=== PATIENT | male | born 1960 | race Caucasian/White ===

== ENCOUNTER 2017-09-22 08:18 | Outpatient (CLI) | payer BC ==
--- NOTE | 2017-09-22 14:46 | NM ---
PARATHYROID SCAN: HISTORY: Hyperparathyroidism unspecified. TECHNIQUE: The patient was given 23 mCi of Technetium labeled sestamibi IV. The thyroid bed was scanned anterio rly and obliquely with immediate and 1-hour delayed images. FINDINGS: There is normal thyroid activity seen on immediate images. There is normal washout from the thyroid seen on the 1-hour delayed image. No evidence of focal residual activity identified that would indic ate an adenoma. IMPRESSION: Negative parathyroid scan. POS: [facility]
== END 2017-09-22 08:19 | disposition home or self-care (01) ==
LOC: NM 08:18
PROVIDERS: ATTEND Family Medicine
DX: E21.3 Hyperparathyroidism, unspecified (principal)
CPT/HCPCS: 78072; A9500

== ENCOUNTER 2017-10-29 09:17 | Day surgery (SDC) | payer BC ==
[2017-10-28 13:43] VITALS: BMI 31.4
[2017-10-29] MEDS ORDERED: Lidocaine 1% w/Epinephrine 1:200K 30 ML VIAL ONE (12:30)
[2017-10-29] MEDS ORDERED: Fentanyl 250 MCG/5 ML VIAL ONE (12:30)
[2017-10-29] MEDS ORDERED: cefTRIAXone\\ROCEPHIN 1 GM VIAL ONE (13:30)
[2017-10-29] MEDS ORDERED: Fentanyl 100 MCG/2 ML VIAL ONE (15:50)
[2017-10-29] MEDS ORDERED: Propofol 200 MG/20 ML VIAL ONE (16:26)
[2017-10-29] MEDS ORDERED: Lidocaine 1% PF 5 ML VIAL ONE (16:26)
[2017-10-29] MEDS ORDERED: PHENYLEPHRINE-NS 100 MCG/ML 10 ML SYRINGE ONE (16:26)
[2017-10-29] MEDS ORDERED: Succinylcholine Chloride 20 MG/ML 10 ml SYRINGE FS ONE (16:26)
[2017-10-29] MEDS ORDERED: Dexamethasone 20 MG/5 ML VIAL ONE (16:26)
[2017-10-29] MEDS ORDERED: Ondansetron HCl/PF 4 MG/2 ML Vial ONE (16:26)
[2017-10-29] MEDS ORDERED: diphenhydrAMINE 50 MG/ML VIAL ONE (16:26)
--- NOTE | 2017-10-29 19:08 | EKG ---
Test Reason : PREOP Blood Pressure : / mmHG Vent. Rate : 063 BPM Atrial Rate : 063 BPM P-R Int : 238 ms QRS Dur : 092 ms QT Int : 428 ms P-R-T Axes : 033 -23 -04 degrees QTc Int : 437 ms Sinus rhythm with 1st degree A-V block Minimal voltage criteria for LVH, may be normal variant Borderline ECG No previous ECGs available Confirmed by DR. Marisol CRAIG (3) on 10/29/2017 7:08:02 PM Referred By: Didier DOYLE Confirmed By:DR. Marisol CRAIG
--- NOTE | 2017-10-30 15:24 | OP ---
DATE OF PROCEDURE: 10/29/2017 PREOPERATIVE DIAGNOSES: 1. Hyperparathyroidism. 2. Hypercalcemia. POSTOPERATIVE DIAGNOSES: 1. Hyperparathyroidism. 2. Hypercalcemia. PROCEDURES PERFORMED: 1. Bilateral parathyroidectomy and exploration of 4 glands. 2. Left hemithyroidectomy. SURGEON: Dr. Fareed Shankar. ESTIMATED BLOOD LOSS: 20 mL COMPLICATIONS: None. ANESTHESIA: GETA with laryngeal nerve monitor. DESCRIPTION OF PROCEDURE: The patient taken to the operating room and placed supine on the table. G eneral endotracheal anesthesia was obtained by the Anesthesia staff. Using the laryngeal monitor, th e tube was then secured to the midline of the upper lip and was secured. The patient was prepped and draped in standard surgical fashion and shoulder roll was placed. Following this, I anticipat ed incision overlying the thyroid gland was created using a 15 blade through skin and subcutaneous ti ssue and the platysmal layer. Following this, subplatysmal flaps elevated superiorly and inferiorly , superiorly to the level of the thyroid notch and inferiorly to the clavicles. Following this, the strap muscles were identified in the midline and were . Dissection was then carried down on the thyroid gland, which was noted to be atrophic bilaterally. Exploration and identification of th e recurrent laryngeal nerves was performed bilaterally as well as the inferior thyroid arteries. The re were multiple small lymph nodes in this area resembling parathyroid glands up to 8 specimens were sent of these various hyperplastic lymph nodes. Following this, the inferior thyroid artery was sutu re ligated bilaterally, as well as the middle thyroid vein bilaterally. The nerve and gland was retr acted and protected. Following this, the superior glands were identified immediately adjacent to the thyroid capsule bilaterally. They were extremely small, not consistent with an adenoma or hyperplas ia. These glands were left intact due to devascularization of the inferior thyroid arteries already. On the left side, no confirming identifiable parathyroid gland tissue was identified with our speci mens. There was a nodule located within the left thyroid gland and therefore a left hemithyroidectom y was performed. Following this, a drain was placed. The wound was irrigated and the strap muscles were reapproximated using Monocryl as well as use the platysmal layer and subcuticular layers. The s kin was closed using Dermabond. The patient tolerated procedure well.
== END 2017-10-29 18:55 | disposition home or self-care (01) ==
LOC: SDC 09:17
PROVIDERS: ATTEND Otolaryngology Plastic Surgery within the Head & Neck
PROC: 0GBG0ZZ Excision of Left Thyroid Gland Lobe, Open Approach (ICD-10-PCS; principal; 2017-10-29)
PROC: 0GTQ0ZZ Resection of Multiple Parathyroid Glands, Open Approach (ICD-10-PCS; principal; 2017-10-29)
PROC: 0WJC0ZZ Inspection of Mediastinum, Open Approach (ICD-10-PCS; principal; 2017-10-29)
DX: E06.3 Autoimmune thyroiditis (principal); E21.3 Hyperparathyroidism, unspecified; E03.9 Hypothyroidism, unspecified; Z79.899 Other long term (current) drug therapy; Z88.5 Allergy status to narcotic agent; Z87.891 Personal history of nicotine dependence; Z86.73 Personal history of transient ischemic attack (TIA), and cerebral infarction without residual deficits
CPT/HCPCS: 88305; 88307; 88331; 88334; 93005; 93010; 96374; J0696; J1100; J1200; J2001; J2405; J2704; J3010

== ENCOUNTER 2018-03-20 08:27 | Outpatient (CLI) | payer BC ==
--- NOTE | 2018-03-20 11:52 | NM ---
PARATHYROID SCAN: Date: 03-20-18 History: Hyperparathyroidism, unspecified. Radiopharmaceutical: 25.3 mCi Technetium 99M Sestamibi, IV. Views: Anterior and oblique immediate and 2-hour delayed images. Comparison: Parathyroid scan, 09-22-17. FINDINGS: There is uptake of radiotracer by the thyroid gland bilaterally on the immediate images. There is sym metric washout of radiotracer on the 2-hour delayed images. Patient reportedly had a left hemithyroid ectomy, but there is uptake of radiotracer in distribution of left thyroid gland. No focal area of ab normal increased uptake of radiotracer is seen in the region of either thyroid gland to suggest findi ngs related to a parathyroid adenoma. There is normal uptake of radiotracer within the salivary glands. Parathyroid scan is unchanged compared to the prior exam. IMPRESSION: No focal area of abnormal uptake of radiotracer is seen to suggest parathyroid adenoma. POS: [facility]
== END 2018-03-20 08:28 | disposition home or self-care (01) ==
LOC: NM 08:27
PROVIDERS: ATTEND Otolaryngology Plastic Surgery within the Head & Neck
DX: E21.3 Hyperparathyroidism, unspecified (principal)
CPT/HCPCS: 78072; A9500

== ENCOUNTER 2018-07-22 11:35 | Day surgery (SDC) | payer BC ==
[2018-07-21 14:40] VITALS: BMI 29.2
[2018-07-22] MEDS ORDERED: Lidocaine 1% w/Epinephrine 1:100K 30 ML VIAL ONE (13:45)
[2018-07-22] MEDS ORDERED: Fentanyl 100 MCG/2 ML VIAL ONE (14:23)
--- NOTE | 2018-07-26 22:16 | EKG ---
Test Reason : PREOP Blood Pressure : / mmHG Vent. Rate : 054 BPM Atrial Rate : 054 BPM P-R Int : 206 ms QRS Dur : 090 ms QT Int : 440 ms P-R-T Axes : 047 -19 -01 degrees QTc Int : 417 ms Sinus bradycardia Otherwise normal ECG When compared with ECG of 29-OCT-2017 11:50, MN interval has decreased Confirmed by VALERIA BARRERA (2) on 07/26/2018 10:15:34 PM Referred By: YANIRA Confirmed By:VALERIA BARRERA
== END 2018-07-22 14:51 | disposition home or self-care (01) ==
LOC: SDC 11:35
PROVIDERS: ATTEND Otolaryngology Plastic Surgery within the Head & Neck
DX: E21.3 Hyperparathyroidism, unspecified (principal); E03.9 Hypothyroidism, unspecified; H90.5 Unspecified sensorineural hearing loss; Z79.899 Other long term (current) drug therapy; Z88.5 Allergy status to narcotic agent; Z53.9 Procedure and treatment not carried out, unspecified reason
CPT/HCPCS: 93005; 93010; J2001; J3010

== ENCOUNTER 2019-04-03 14:16 | Emergency (ER) | payer BC ==
[2019-04-03 14:47] LABS: #Basophils 0.1 thou/uL (0.0-0.2); #Eosinphils 0.1 thou/uL (0.0-0.7); #Lymphocytes 1.3 thou/uL (1.20-3.40); #Monocytes 0.8 thou/uL (0.11-0.59); #Neutrophils 8.9 thou/uL (1.40-6.50); %Basophils 0.6 % (0.0-1.0); %Eosinophils 1.2 % (0.0-10.0); %Lymphocytes 11.3 % (21.0-51.0); %Monocytes 6.9 % (0.0-10.0); %Neutrophils 80.1 % (42.0-75.0); Hemoglobin 14.6 g/dL (14.0-18.0); Mean Corpuscular HGB CONC 32.6 g/dL (32.0-36.0); Mean Corpuscular Hemoglobin 29.1 pg (27.0-31.0); Mean Corpuscular Volume 89.3 fL (78.0-98.0); Mean Platelet Volume 7.8 fL (7.4-10.4); Platelet Count 225 thou/uL (130-400); RBC Distribution Width 12.6 % (11.5-14.5); Red Blood Cell (RBC) Count 5.01 mill/uL (4.70-6.10); White Blood Cell (WBC) Count 11.1 thou/uL (4.8-10.8)
--- NOTE | 2019-04-03 14:50 | RAD ---
Exam: Chest one view HISTORY:Syncope Comparison: None FINDINGS: Cardiac silhouette: Normal Pulmonary vessels: Normal Costophrenic angles: Clear LUNGS: No masses or consolidation. Pneumothorax: None Osseous abnormalities: None IMPRESSION: No acute cardiopulmonary process.
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
[2019-04-03 15:05] LABS: ALT (SGPT) 10 U/L (8-55); AST (SGOT) 11 U/L (5-34); Albumin 3.9 g/dL (3.5-5.0); Alkaline Phosphatase 122 U/L (40-150); Anion Gap 11 mmol/L (10-20); BUN (Urea Nitrogen) 17 mg/dL (8.4-25.7); Bilirubin, Total 0.4 mg/dL (0.2-1.2); CK (CPK) 50 U/L (30-200); Calc. Creatinine Clearance 0 mL/min (70-130); Calcium 9.5 mg/dL (7.8-10.44); Carbon Dioxide 26 mmol/L (22-29); Chloride 107 mmol/L (98-107); Estimated GFR-MDRD 88; Globulin 2.5 g/dL (2.4-3.5); Glucose 123 mg/dL (70-105); Potassium 3.6 mmol/L (3.5-5.1); Protein, Total 6.4 g/dL (6.0-8.3); Sodium 140 mmol/L (136-145)
--- NOTE | 2019-04-03 15:24 | CT ---
Exam: Head CT without contrast HISTORY: Syncope. COMPARISON: none FINDINGS: Hemorrhage: No intraparenchymal hemorrhage or extra-axial hematoma. Brain parenchyma: Cortical gibbons-white matter differentiation is preserved. No mass effect or midline shift. Basilar cisterns are patent. Ventricular system: Ventricles and sulci are patent and symmetric. Calvarium: Intact. Sinuses and mastoid air cells: Adequate aeration. IMPRESSION: No acute intracranial process.
[2019-04-03] MEDS ORDERED: Lidocaine 1% (PF) 30 ML VIAL ONE (15:27)
[2019-04-03] MEDS ORDERED: Bacitracin 1 PK ONE (15:42)
== END 2019-04-03 15:50 | disposition home or self-care (01) ==
LOC: ERS 14:16
DX: S61.412A Laceration without foreign body of left hand, initial encounter (principal); E05.90 Thyrotoxicosis, unspecified without thyrotoxic crisis or storm; Z87.891 Personal history of nicotine dependence; Z79.899 Other long term (current) drug therapy; W22.8XXA Striking against or struck by other objects, initial encounter
CPT/HCPCS: 12001; 36415; 70450; 71045; 80053; 82550; 83880; 84484; 85025; 93005; 96360; J2001